=== PATIENT | female | born 1980 | race American Indian/Alaskan Native ===

== ENCOUNTER 2019-08-13 03:34 | Outpatient (CLI) | payer SELFPAY ==
[2019-08-13 03:52] VITALS: BP 141/75
== END 2019-08-13 04:41 | disposition home or self-care (01) ==
LOC: TRG 03:34 → APU 03:42 → TRG 04:41
PROVIDERS: ATTEND Obstetrics & Gynecology
DX: O60.00 Preterm labor without delivery, unspecified trimester (principal); Z3A.00 Weeks of gestation of pregnancy not specified
CPT/HCPCS: 59025